=== PATIENT | male | born 1955 | race Caucasian/White ===

== ENCOUNTER 2016-02-20 23:59 | Emergency (ER) | payer MEDICARE ==
[2016-02-21] MEDS ORDERED: IBUPROFEN 600 MG TABLET PO STA (00:46)
[2016-02-21] MEDS ORDERED: IBUPROFEN 600 MG TABLET PO ONE (00:48)
== END 2016-02-21 00:55 | disposition home or self-care (01) ==
DX: D17.24 Benign lipomatous neoplasm of skin and subcutaneous tissue of left leg (principal); I10 Essential (primary) hypertension; I48.92 Unspecified atrial flutter; Z79.02 Long term (current) use of antithrombotics/antiplatelets; Z95.5 Presence of coronary angioplasty implant and graft; E03.9 Hypothyroidism, unspecified; F17.200 Nicotine dependence, unspecified, uncomplicated
CPT/HCPCS: 99282; 99283; A9270